=== PATIENT | male | born 1980 | race Caucasian/White ===

== ENCOUNTER → 2023-04-07 12:00 | Outpatient (CLI) | payer OTHER, SELFPAY ==
[2023-04-07 12:52] LABS: Influenza A - CEPHEID Flu A NEGATIVE (NEGATIVE); Influenza B - CEPHEID Flu B NEGATIVE (NEGATIVE); Respiratory Syncytial Virus POSITIVE (Negative)
[2023-04-07 12:53] LABS: COVID-19 CEPHEID 4-PLEX PCR Negative (Negative)
== END ==
PROVIDERS: Visit Provider Nurse Practitioner Family
DX: R05.1 Acute cough (principal)
CPT/HCPCS: 0241U

== ENCOUNTER → 2023-04-24 10:40 | Outpatient (CLI) | payer OTHER, SELFPAY ==
[2023-04-24 11:47] LABS: Hematocrit 43.9 % (41-53); Hemoglobin 15.2 g/dL (13.5-17.5); Mean Corpuscular HGB Conc 34.7 % (30-36); Mean Corpuscular Hemoglobin 31.4 PG (26-34); Mean Corpuscular Volume 90.6 fL (80-100); Platelet Count 278 X10^3/uL (150-400); Red Blood Cell Count 4.85 X10^6/uL (4.5-5.9); White Blood Cell Count 5.2 X10^3/uL (4.5-11.0)
[2023-04-24 12:05] LABS: Hemoglobin A1C% w Est Avg Glu 5.6 % (4.0-6.0)
[2023-04-24 12:13] LABS: Alanine Aminotransferase 30 IU/L (<50); Albumin 4.5 g/dL (3.5-5.0); Albumin Globulin Ratio 1.4 (1.0-2.8); Alkaline Phosphatase 68 U/L (38-126); Aspartate Aminotransferase 23 IU/L (17-59); BUN Creatinine Ratio 16.5 (6-22); Bilirubin Total 0.7 mg/dL (0.2-1.3); Blood Urea Nitrogen 18 mg/dL (9-20); Calcium 9.9 mg/dL (8.4-10.2); Carbon Dioxide 22 mmol/L (22-32); Chloride 104 mmol/L (98-107); Cholesterol 204 mg/dL (140-199); Estimated Glomerular Filt Rate > 60 mL/min (>60); Globulin 3.3 g/dL (1.7-4.1); Glucose 103 mg/dL (70-100); HDL Cholesterol 70 mg/dL (40-60); HEMOLYSIS < 15 (0-50); Sodium 137 mmol/L (137-145); Total Protein 7.8 g/dL (6.3-8.2); Triglycerides 53 mg/dL (35-150)
[2023-04-24 12:14] LABS: LDL Cholesterol Calculated 123 mg/dL (<100)
[2023-04-24 15:37] LABS: Neutrophils Absolute Manual 2496 /uL (3000-5900); Total Cells Counted 100
[2023-04-24 15:38] LABS: RBC Morphology Normal Morphology
[2023-04-26 15:54] LABS: HIV 1 & 2 Ab/Ag 4th Gen Combo NEGATIVE (NEGATIVE); Hep C Virus Ab w/Reflex Quant NEGATIVE s/c (NEGATIVE)
== END ==
LOC: LAB 10:42
PROVIDERS: PCP Family Medicine; Referring Provider Family Medicine; Visit Provider Family Medicine
DX: Z11.4 Encounter for screening for human immunodeficiency virus [HIV] (principal); Z11.59 Encounter for screening for other viral diseases; Z13.220 Encounter for screening for lipoid disorders; Z13.1 Encounter for screening for diabetes mellitus; Z13.9 Encounter for screening, unspecified; E66.9 Obesity, unspecified; R03.0 Elevated blood-pressure reading, without diagnosis of hypertension; G43.909 Migraine, unspecified, not intractable, without status migrainosus
CPT/HCPCS: 36415; 80053; 80061; 83036; 85025; 86803; 87389

== ENCOUNTER → 2023-04-26 16:35 | Outpatient (CLI) | payer OTHER, SELFPAY ==
--- NOTE | 2023-04-26 16:36 | DI.US.S_ITS ---
PROCEDURE: US SCROTUM INDICATIONS: TENDER PALPABLE LUMPS ALONG BILAT VAS DEFERENS. EVAL VAS DEFERENS. BILATERAL TESTICLE PAIN TECHNIQUE: Real-time scanning was performed of the scrotum and testicles, with image documentation. Color and pulse Doppler interrogation was performed of both testicles. COMPARISON: None. FINDINGS: Right: Testicle is normal in size at 4.2 x 3.0 x 1.9 cm, and homogenous in echotexture. Epididymis is normal in overall size and morphology. No hydrocele or varicoceles. Overlying scrotal skin is normal in thickness. Tiny epididymal cyst, 0.1 x 0.3 x 0.1 cm. Left: Testicle is normal in size at 3.6 x 3.0 x 1.9 cm, and homogeneous in echotexture. Epididymis is normal in overall size and morphology. No hydrocele or varicoceles. Overlying scrotal skin is normal in thickness. Tiny epididymal cyst, 0.2 x 0.3 x 0.2 cm. Doppler: Color and pulse Doppler demonstrate normal and symmetric arterial flow in both testicles. IMPRESSION: Unremarkable scrotal ultrasound. No testicular mass, testicular torsion, epididymitis, or orchitis. Dictated by: Narinder Galan M.D. on 04/27/2023 at 18:53 Approved by: Narinder Galan M.D. on 04/27/2023 at 18:54
--- NOTE | 2023-04-26 17:19 | DI.RAD.S_ITS ---
PROCEDURE: XR SHOULDER RT MIN 2V INDICATIONS: treat and eval TECHNIQUE: 3 views of the shoulder were acquired. COMPARISON: None. FINDINGS: Bones: No fractures or dislocations. No suspicious bony lesions. Visualized ribs appear intact. Periarticular calcification above the acromioclavicular joint. Acromioclavicular osteoarthritis. Soft tissues: No suspicious soft tissue calcifications. 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 Dictated by: Austyn Lopez M.D. on 04/27/2023 at 11:46 Approved by: Austyn Lopez M.D. on 04/27/2023 at 11:47
== END ==
LOC: US 16:36
PROVIDERS: PCP Family Medicine; Referring Provider Family Medicine; Visit Provider Family Medicine
DX: N50.811 Right testicular pain (principal); N50.812 Left testicular pain; M19.011 Primary osteoarthritis, right shoulder; M25.511 Pain in right shoulder; G89.29 Other chronic pain
CPT/HCPCS: 73030; 76870; 93975

== ENCOUNTER → 2023-05-18 17:09 | Outpatient (CLI) | payer OTHER, SELFPAY ==
--- NOTE | 2023-05-18 17:13 | DI.RAD.S_ITS ---
PROCEDURE: XR FOOT LT MIN 3V INDICATIONS: Chronic pain along medial arch/midtarsal joint TECHNIQUE: 3 views of the foot were acquired. COMPARISON: None. FINDINGS: Bones: No acute fractures or dislocations. No suspicious bony lesions. Small plantar calcaneal enthesophyte. Soft tissues: No suspicious soft tissue calcification. IMPRESSION: 1. No acute osseous abnormality. If symptoms persist or if there is continued clinical concern, cross-sectional imaging such as MRI or CT may be helpful for further evaluation. 2. Plantar calcaneal enthesopathy. Approved by: Kelvin Looney M.D. on 05/19/2023 at 11:19
== END ==
PROVIDERS: PCP Family Medicine; Referring Provider Family Medicine; Visit Provider Family Medicine
DX: M79.672 Pain in left foot (principal); M77.32 Calcaneal spur, left foot; G89.29 Other chronic pain
CPT/HCPCS: 73630